=== PATIENT | male | born 1960 | race Caucasian/White ===

== ENCOUNTER 2018-06-26 13:25 | Outpatient (CLI) | payer OTHER ==
[~2018-06-26 13:25] MED LIST: ALLOPURINOL100 MG; METFORMIN HCL1000 MG; TORADOL60 MG; URIN D.S. TABLE1 TAB; ZIAC 10/6.25 MG1 TAB
== END 2018-06-26 13:41 | disposition home or self-care (01) ==
LOC: SONOGRAMA 13:25
DX: N40.0 Benign prostatic hyperplasia without lower urinary tract symptoms (principal); N20.0 Calculus of kidney; N20.1 Calculus of ureter

== ENCOUNTER 2018-07-26 08:48 | Outpatient (CLI) | payer OTHER | END 2018-07-26 08:56 | disposition home or self-care (01) | LOC: MRI 08:48 | DX: M25.562 Pain in left knee (principal) | CPT/HCPCS: 73721 ==

== ENCOUNTER 2018-08-23 09:47 | Outpatient (CLI) | payer OTHER | END 2018-08-23 10:01 | disposition home or self-care (01) | LOC: SONOGRAMA 09:47 → MAMO-SONO 10:15 | DX: R97.20 Elevated prostate specific antigen [PSA] (principal) ==

== ENCOUNTER → 2018-09-02 16:09 | Outpatient (CLI) | payer OTHER | END | disposition home or self-care (01) | LOC: LAB 16:09 | DX: R97.20 Elevated prostate specific antigen [PSA] (principal) ==

== ENCOUNTER 2018-09-25 07:11 | Outpatient (CLI) | payer OTHER | END 2018-09-25 07:26 | disposition home or self-care (01) | LOC: SONOGRAMA 07:11 | DX: R97.20 Elevated prostate specific antigen [PSA] (principal) ==

== ENCOUNTER 2019-01-06 18:31 | Outpatient (CLI) | payer OTHER | END 2019-01-06 18:37 | disposition home or self-care (01) | LOC: LAB 18:31 | DX: R97.20 Elevated prostate specific antigen [PSA] (principal) ==

== ENCOUNTER 2019-03-12 07:05 | Outpatient (CLI) | payer OTHER | END 2019-03-12 07:17 | disposition home or self-care (01) | LOC: SONOGRAMA 07:05 | DX: D29.1 Benign neoplasm of prostate (principal); R97.20 Elevated prostate specific antigen [PSA] ==

== ENCOUNTER 2019-08-30 08:16 | Outpatient (CLI) | payer OTHER | END 2019-08-30 09:29 | disposition home or self-care (01) | LOC: MAMO-SONO 08:16 | DX: N20.0 Calculus of kidney (principal); R31.29 Other microscopic hematuria ==

== ENCOUNTER 2020-06-01 07:34 | Outpatient (CLI) | payer OTHER | END 2020-06-01 07:51 | disposition home or self-care (01) | LOC: TOM 07:34 | PROVIDERS: ATTEND Urology | DX: N40.0 Benign prostatic hyperplasia without lower urinary tract symptoms (principal); R31.21 Asymptomatic microscopic hematuria; N20.1 Calculus of ureter ==

== ENCOUNTER 2021-12-02 09:23 | Outpatient (CLI) | payer OTHER | END 2021-12-02 09:34 | disposition home or self-care (01) | LOC: SONOGRAMA 09:23 | PROVIDERS: ATTEND Urology | DX: N40.0 Benign prostatic hyperplasia without lower urinary tract symptoms (principal); R31.21 Asymptomatic microscopic hematuria; N20.0 Calculus of kidney ==

== ENCOUNTER 2021-12-02 10:54 | Outpatient (CLI) | payer OTHER | END 2021-12-02 23:00 | disposition home or self-care (01) | LOC: LAB 10:54 | PROVIDERS: ATTEND Urology | DX: N40.0 Benign prostatic hyperplasia without lower urinary tract symptoms (principal); R31.21 Asymptomatic microscopic hematuria; N20.0 Calculus of kidney; N28.89 Other specified disorders of kidney and ureter; I10 Essential (primary) hypertension; E11.21 Type 2 diabetes mellitus with diabetic nephropathy; R80.8 Other proteinuria ==

== ENCOUNTER 2022-10-05 13:11 | Inpatient (IN) | payer OTHER ==
[~2022-10-05] VITALS: Ht 170.2 cm; Wt 73.5 kg
[2022-10-05] MEDS ORDERED: GLIPIZIDE XL2.5 MG (13:27)
== END 2022-10-14 14:00 | disposition home or self-care (01) | DRG 329 ==
LOC: ER 13:11 → MEDI 20:26
PROVIDERS: ADMIT Internal Medicine; ATTEND Internal Medicine
PROC: BW21ZZZ Computerized Tomography (CT Scan) of Abdomen and Pelvis (ICD-10-PCS; 2022-10-05)
PROC: BW2110Z Computerized Tomography (CT Scan) of Abdomen and Pelvis using Low Osmolar Contrast, Unenhanced and Enhanced (ICD-10-PCS; 2022-10-06)
PROC: 0DU907Z Supplement Duodenum with Autologous Tissue Substitute, Open Approach (ICD-10-PCS; principal; 2022-10-07)
PROC: 0DJW0ZZ Inspection of Peritoneum, Open Approach (ICD-10-PCS; 2022-10-07)
PROC: 0D9670Z Drainage of Stomach with Drainage Device, Via Natural or Artificial Opening (ICD-10-PCS; 2022-10-07)
PROC: 4A12X4Z Monitoring of Cardiac Electrical Activity, External Approach (ICD-10-PCS; 2022-10-07)
PROC: 5A0945A Assistance with Respiratory Ventilation, 24-96 Consecutive Hours, High Flow/Velocity Cannula (ICD-10-PCS; 2022-10-07)
PROC: BD15YZZ Fluoroscopy of Upper GI using Other Contrast (ICD-10-PCS; 2022-10-11)
DX: K26.1 Acute duodenal ulcer with perforation (principal); K85.90 Acute pancreatitis without necrosis or infection, unspecified; N17.9 Acute kidney failure, unspecified; D72.829 Elevated white blood cell count, unspecified; I13.10 Hypertensive heart and chronic kidney disease without heart failure, with stage 1 through stage 4 chronic kidney disease, or unspecified chronic kidney disease; N18.32 Chronic kidney disease, stage 3b; E11.22 Type 2 diabetes mellitus with diabetic chronic kidney disease; N20.0 Calculus of kidney; K66.8 Other specified disorders of peritoneum; Z79.84 Long term (current) use of oral hypoglycemic drugs

== ENCOUNTER 2022-12-11 10:58 | Outpatient (CLI) | payer OTHER ==
[~2022-12-11 10:58] MED LIST changes: +GLIPIZIDE XL2.5 MG
== END 2022-12-11 11:08 | disposition home or self-care (01) ==
LOC: SONOGRAMA 10:58
PROVIDERS: ATTEND Urology
DX: N40.0 Benign prostatic hyperplasia without lower urinary tract symptoms (principal); R31.21 Asymptomatic microscopic hematuria; N20.0 Calculus of kidney

== ENCOUNTER 2023-06-04 11:32 | Outpatient (CLI) | payer OTHER | END 2023-06-04 12:38 | disposition home or self-care (01) | LOC: RAD 11:32 | PROVIDERS: ATTEND Urology | DX: N40.0 Benign prostatic hyperplasia without lower urinary tract symptoms (principal); R31.21 Asymptomatic microscopic hematuria; N20.0 Calculus of kidney ==

== ENCOUNTER 2025-08-07 07:06 | Outpatient (CLI) | payer OTHER | END 2025-08-07 07:14 | disposition home or self-care (01) | LOC: SONOGRAMA 07:06 | PROVIDERS: ATTEND Urology | DX: N40.0 Benign prostatic hyperplasia without lower urinary tract symptoms (principal); R31.1 Benign essential microscopic hematuria ==